=== PATIENT | female | born 1990 | race Caucasian/White ===

== ENCOUNTER 2022-07-30 09:35 | Day surgery (SDC) | payer BC ==
[2022-07-28 15:44] VITALS: BMI 66.2
[2022-07-30] MEDS ORDERED: CeleCOXIB 100 MG CAP ONE (09:59)
[2022-07-30] MEDS ORDERED: Famotidine/PF 20 mg/2ml Vial ONE (09:59)
[2022-07-30 10:41] LABS: Hemoglobin 14.4 g/dL (12.0-15.5); Mean Corpuscular HGB CONC 33.8 g/dL (32.0-36.0); Mean Corpuscular Volume 82.9 fl (81.6-98.3); Mean Platelet Volume 11.5 fl (7.4-10.4); Platelet Count 369 10x3/uL (150-450); RBC Distribution Width 12.1 % (11.5-14.5); Red Blood Cell (RBC) Count 5.14 10x6/uL (3.90-5.03); White Blood Cell (WBC) Count 7.9 10x3/uL (3.5-10.5)
[2022-07-30 10:50] LABS: BHCG - Serum Negative (NEGATIVE); Pregs Control Background? CLEAR/WHITE (CLR/WHITE); Pregs Control Bar Appear? YES (CONTROL BAR)
[2022-07-30] MEDS ORDERED: CEFAZOLIN 2 GM VIAL ONE (11:49)
[2022-07-30] MEDS ORDERED: Ondansetron PF 4 MG/2 ML Vial ONE (11:54)
[2022-07-30] MEDS ORDERED: Midazolam HCl 2 mg/2 ml Vial ONE (11:54)
[2022-07-30] MEDS ORDERED: PROPOFOL 20 ML ONE ×2 (11:54→12:15)
[2022-07-30] MEDS ORDERED: Fentanyl 100 MCG/2 ML VIAL ONE (11:54)
[2022-07-30] MEDS ORDERED: Dexamethasone 4 mg/ml Vial ONE (11:54)
[2022-07-30] MEDS ORDERED: Ketorolac Tromethamine 30 MG/ML VIAL ONE (12:16)
== END 2022-07-30 14:00 | disposition home or self-care (01) ==
LOC: CSHSDC 09:35
PROVIDERS: ATTEND Obstetrics & Gynecology
PROC: 0UDB8ZZ Extraction of Endometrium, Via Natural or Artificial Opening Endoscopic (ICD-10-PCS; principal; 2022-07-30)
DX: N92.1 Excessive and frequent menstruation with irregular cycle (principal); Z88.1 Allergy status to other antibiotic agents; Z79.899 Other long term (current) drug therapy
CPT/HCPCS: 36415; 84703; 85027; 88305; J1100; J1885; J2250; J2405; J2704; J3010; S0028

== ENCOUNTER 2022-09-29 07:17 | Day surgery (SDC) | payer BC ==
[2022-09-24 09:41] VITALS: BMI 62.3
[2022-09-24 11:10] LABS: Mean Corpuscular HGB CONC 33.1 g/dL (32.0-36.0); Mean Corpuscular Hemoglobin 28.2 pg (27.0-33.0); Mean Corpuscular Volume 85.3 fl (81.6-98.3); Mean Platelet Volume 11.3 fl (7.4-10.4); Platelet Count 365 10x3/uL (150-450); RBC Distribution Width 13.3 % (11.5-14.5); Red Blood Cell (RBC) Count 4.96 10x6/uL (3.90-5.03); White Blood Cell (WBC) Count 9.7 10x3/uL (3.5-10.5)
[2022-09-24 11:26] LABS: BHCG - Serum Negative (NEGATIVE); Pregs Control Background? CLEAR/WHITE (CLR/WHITE); Pregs Control Bar Appear? YES (CONTROL BAR)
[2022-09-24 11:34] LABS: Anion Gap 16 mmol/L (10-20); BUN (Urea Nitrogen) 17 mg/dL (7.0-18.7); Calc. Creatinine Clearance 0 mL/min (70-130); Calcium 9.6 mg/dL (7.8-10.44); Carbon Dioxide 21 mmol/L (22-29); Chloride 104 mmol/L (98-107); Estimated GFR 81; Glucose 109 mg/dL (70-105); Potassium 4.3 mmol/L (3.5-5.1); Sodium 137 mmol/L (136-145)
[~2022-09-29 07:17] MED LIST: Bupivacaine HCl 0.5%/Epinephrine 1:200,000/PF 30 ml Vial ONE; Dexmedetomidine 200 MCG/2 ML VIAL ONE
[2022-09-29] MEDS ORDERED: Gabapentin 300 MG CAP ONE (07:56)
[2022-09-29] MEDS ORDERED: CeleCOXIB 100 MG CAP ONE (07:57)
[2022-09-29] MEDS ORDERED: Famotidine/PF 20 mg/2ml Vial ONE (07:58)
[2022-09-29] MEDS ORDERED: Lidocaine 1% PF 5 ML VIAL ONE (08:40)
[2022-09-29] MEDS ORDERED: Rocuronium Bromide 10 MG/ML (10ML VIAL) ONE ×2 (08:40→11:21)
[2022-09-29] MEDS ORDERED: Midazolam HCl 2 mg/2 ml Vial ONE ×2 (08:40→10:03)
[2022-09-29] MEDS ORDERED: Fentanyl 250 MCG/5 ML VIAL ONE (08:40)
[2022-09-29] MEDS ORDERED: Ondansetron PF 4 MG/2 ML Vial ONE (08:40)
[2022-09-29] MEDS ORDERED: PROPOFOL 20 ML ONE (08:40)
[2022-09-29] MEDS ORDERED: Dexamethasone 20 MG/5 ML VIAL ONE (08:41)
[2022-09-29] MEDS ORDERED: Glycopyrrolate 0.2 MG/ML 5 ML SYRINGE ONE (08:41)
[2022-09-29] MEDS ORDERED: Ketorolac Tromethamine 30 MG/ML VIAL ONE (08:41)
[2022-09-29] MEDS ORDERED: CEFAZOLIN 2 GM VIAL ONE (09:34)
[2022-09-29] MEDS ORDERED: Labetalol HCl 100 MG/20 ML VIAL ONE (10:26)
[2022-09-29] MEDS ORDERED: Ropivacaine 0.2% 550 ML 550 ML NERVE BLCK SCH (12:30)
[2022-09-29] MEDS ORDERED: oxyCODONE 5 MG TAB ONE (14:27)
== END 2022-09-29 15:10 | disposition home or self-care (01) ==
LOC: CSHSDC 07:17
PROVIDERS: ATTEND Obstetrics & Gynecology
PROC: 0UT94ZL Resection of Uterus, Supracervical, Percutaneous Endoscopic Approach (ICD-10-PCS; principal; 2022-09-29)
PROC: 0UB24ZZ Excision of Bilateral Ovaries, Percutaneous Endoscopic Approach (ICD-10-PCS; principal; 2022-09-29)
PROC: 0UB74ZZ Excision of Bilateral Fallopian Tubes, Percutaneous Endoscopic Approach (ICD-10-PCS; principal; 2022-09-29)
DX: N92.0 Excessive and frequent menstruation with regular cycle (principal); N90.812 Female genital mutilation Type II status; N73.6 Female pelvic peritoneal adhesions (postinfective); N83.02 Follicular cyst of left ovary; N83.01 Follicular cyst of right ovary; E11.9 Type 2 diabetes mellitus without complications; R89.8 Other abnormal findings in specimens from other organs, systems and tissues; E66.01 Morbid (severe) obesity due to excess calories; Z68.44 Body mass index [BMI] 60.0-69.9, adult; Z80.9 Family history of malignant neoplasm, unspecified; Z79.899 Other long term (current) drug therapy; Z88.1 Allergy status to other antibiotic agents
CPT/HCPCS: 36415; 36416; 80048; 84703; 85027; 86850; 86900; 86901; 88307; A4306; J1100; J1885; J2250; J2405; J2704; J2795; J3010; S0028